=== PATIENT | male | born 1970 | race African-American/Black ===

== ENCOUNTER 2022-02-27 01:22 | Emergency (ER) | payer BC ==
[~2022-02-27] VITALS: Ht 180.3 cm; Wt 81.6 kg
--- NOTE | 2022-02-27 01:35 | NUR ---
BIBRA 860 FOR DEPRESSION AND SI , REQUESTING [facility] ADMISSION. PT A.[id number]. TOLERATING R/A WELL WITH NO SOB. PT CHANGED INTO GOWN, BELONGINGS COLLECTED AND PLACED IN LOCKED. PT WANDED BY SECURITY. SAFETY MEASURES IN PLACE.
[2022-02-27] MEDS ORDERED: OLANZAPINE 5 MG TABLET ONE (01:43)
[2022-02-27 01:57] LABS: BASOPHILS # (AUTO) 0.1 K/uL (0.0-0.2); EOSINOPHILS % (AUTO) 2.8 % (0.0-6.0); HEMATOCRIT 41 % (39-51); HEMOGLOBIN 13.8 g/dL (13.5-17.5); LYMPHOCYTES # (AUTO) 1.9 K/uL (0.8-4.8); LYMPHOCYTES % (AUTO) 22.2 % (20.0-44.0); MEAN CORPUSCULAR HGB CONC 34 g/dl (31.0-36.0); MEAN CORPUSCULAR VOLUME 83 fL (80-96); MONOCYTES # (AUTO) 0.7 K/uL (0.1-1.30); MONOCYTES % (AUTO) 7.9 % (2.0-12.0); NEUTROPHILS # (AUTO) 5.7 K/uL (1.8-8.9); NEUTROPHILS % (AUTO) 66.1 % (43.0-81.0); PLATELET COUNT (AUTO) 369 K/uL (150-450); RED BLOOD CELL COUNT(AUTO) 4.95 MIL/uL (4.5-6.0); WHITE BLOOD COUNT (AUTO) 8.5 K/uL (4.3-11.0)
[2022-02-27] MEDS ORDERED: OLANZAPINE 5 MG TABLET PO ONE (02:00)
--- NOTE | 2022-02-27 02:18 | NUR ---
URINE COLLECTED AND SENT TO LAB
[2022-02-27 02:36] LABS: BILIRUBIN,URINE NEGATIVE (NEGATIVE); COLOR,URINE YELLOW (YELLOW); LEUKOCYTE ESTERASE ,URINE NEGATIVE (NEGATIVE); NITRITE, URINE NEGATIVE (NEGATIVE); PROTEIN,URINE NEGATIVE (NEGATIVE); UGLUCOSE NEGATIVE (NEGATIVE)
[2022-02-27 02:36] LABS: ACETAMINOPHEN 0 ug/ml (10-30); ALANINE AMINOTRANSFERASE 38 U/L (12-78); ALBUMIN 3.3 g/dL (3.4-5.0); ALCOHOL, BLOOD < 3 mg/dL (0-0); ALKALINE PHOSPHATASE 118 U/L (46-116); ASPARTATE AMINOTRANSFERASE 34 U/L (15-37); BILIRUBIN,DIRECT 0.2 mg/dL (0.0-0.2); BILIRUBIN,TOTAL 0.6 mg/dL (0.2-1.0); CALCIUM, SERUM 8.7 mg/dL (8.5-10.1); CARBON DIOXIDE 32 mmol/L (21-32); CHLORIDE 102 mmol/L (98-107); CREATININE 0.8 mg/dL (0.6-1.3); GLUCOSE 85 mg/dL (74-106); POTASSIUM 3.5 mmol/L (3.5-5.1); SODIUM SERUM 138 mmol/L (136-145); TOTAL PROTEIN, SERUM 8.5 g/dL (6.4-8.2); UREA NITROGEN, BLOOD 15 mg/dL (7-18)
--- NOTE | 2022-02-27 03:49 | NUR ---
FACESHEET AND CLINICALS FAXED TO [facility].
--- NOTE | 2022-02-27 08:05 | NUR ---
THE PATIENT IS RECEIVED IN #18. SLEEPING, EASILY RESPONSIVE TO VERBAL STIMULI. RESPIRATION REGULAR AND UNLABORED. WILL CONTINUE TO MONITOR THE PATIENT.
--- NOTE | 2022-02-27 14:26 | NUR ---
so kane Sanchez
--- NOTE | 2022-02-27 14:30 | NUR ---
[facility] CALLED FOR TRANSPORT ETA 1630 PER KEELY.
--- NOTE | 2022-02-27 15:34 | NUR ---
report given to Julius
[2022-02-27 16:31] VITALS: BP 131/74
--- NOTE | 2022-02-27 16:44 | NUR ---
TRANSPORTATION ARRIVED, PT TRANSPORTED TO FACILITY IN STABLE CONDITON. PT BELONGINGS GIVENT TO TRANSPORTATION.
== END 2022-02-27 16:55 ==
LOC: ER 01:41
DX: R45.851 Suicidal ideations (principal); F32.A Depression, unspecified; Z59.00 Homelessness unspecified; Z20.822 Contact with and (suspected) exposure to COVID-19; F19.10 Other psychoactive substance abuse, uncomplicated
CPT/HCPCS: 36415; 80048; 80076; 80143; 80307; 80320; 81003; 85025; 87426; 99285; C9803; G0480